=== PATIENT | male | born 1940 | race Caucasian/White ===

== ENCOUNTER 2018-06-20 17:42 | Inpatient (IN) | payer BC ==
[~2018-06-20] VITALS: Ht 172.7 cm; Wt 67.8 kg
[2018-06-20 17:45] VITALS: BP_SYST 189
[2018-06-20 18:23] LABS: BILIRUBIN,URINE NEGATIVE (NEGATIVE); BLOOD, URINE 1+ (NEGATIVE); CLARITY/URINE CLEAR (CLEAR); COLOR,URINE YELLOW (YELLOW); GLUCOSE,URINE NEGATIVE (NEGATIVE); KETONES,URINE NEGATIVE (NEGATIVE); LEUKOCYTE ESTERASE ,URINE NEGATIVE (NEGATIVE); NITRITE, URINE NEGATIVE (NEGATIVE); PROTEIN URINE TRACE (NEGATIVE); UROBILINOGEN,URINE 0.2 (0.2-1.0)
[2018-06-20 18:33] LABS: WBC,URINE 0-3 /HPF (0-3)
[2018-06-20 18:34] LABS: BACTERIA,URINE RARE /HPF (None Seen)
[2018-06-20 18:36] LABS: BARBITURATE, URINE NEGATIVE (NEG <=200); BENZODIAZEPINE, URINE NEGATIVE (NEG <=150); CANNABINOID, URINE NEGATIVE (NEG <=50); COCAINE, URINE NEGATIVE (NEG <=150); METHAMPHETAMINES SCREEN,URINE NEGATIVE (NEG <=500); OPIATE, URINE NEGATIVE (NEG <=100); PHENCYCLIDINE SCREEN,URINE NEGATIVE (NEG <=25); UR TRICYCLIC ANTIDEPRESSANTS NEGATIVE (NEG <=300); URINE AMPHETAMINE NEGATIVE (NEG <=500); URINE METHADONE NEGATIVE (NEG <=200); URINE OXYCODONE SCREEN NEGATIVE (NEG <=100); URINE PROPOXYPHENE SCREEN NEGATIVE (NEG <=300)
[2018-06-20 18:47] LABS: BASOPHILS # (AUTO) 0.1 K/uL (0.0-0.2); BASOPHILS % (AUTO) 0.8 % (0.0-2.0); EOSINOPHILS # (AUTO) 0.1 K/uL (0.0-0.4); EOSINOPHILS % (AUTO) 1.3 % (0.0-4.0); HEMATOCRIT 41.4 % (36-54); HEMOGLOBIN 13.4 g/dL (14.0-18.0); LYMPHOCYTES # (AUTO) 1.1 K/uL (1.0-5.5); MEAN CORPUSCULAR HEMOGLOBIN 30 pg (27-31); MEAN CORPUSCULAR HGB CONC 32 % (32-36); MEAN CORPUSCULAR VOLUME 92 fL (79.0-98.0); MONOCYTES # (AUTO) 0.7 K/uL (0.0-1.0); MONOCYTES % (AUTO) 6.6 % (1.7-9.3); NEUTROPHILS # (AUTO) 8.2 K/uL (1.8-7.7); NEUTROPHILS % (AUTO) 80.3 % (40.0-70.0); PLATELET COUNT (AUTO) 317 K/uL (130-430); RED BLOOD CELL COUNT(AUTO) 4.48 MIL/uL (4.2-6.2); RED CELL DISTRIBUTION WIDTH 13.5 % (9.0-15.0); WHITE BLOOD COUNT (AUTO) 10.2 K/uL (4.8-10.8)
[2018-06-20 18:51] LABS: ANION GAP 11 (5-15); CALCIUM 9.5 mg/dL (8.4-11.0); CHLORIDE 103 mmol/L (98-107); GLUCOSE 90 mg/dL (70-99); POTASSIUM 4.5 mmol/L (3.5-5.1); SODIUM SERUM 141 mmol/L (136-145); UREA NITROGEN, BLOOD 19 mg/dL (8-21)
[2018-06-20 18:56] LABS: ALANINE AMINOTRANSFERASE 33 U/L (12-78); ALBUMIN 4.3 g/dL (3.4-4.8); ALCOHOL, BLOOD < 3 mg/dL (<10); ASPARTATE AMINOTRANSFERASE 30 U/L (10-37); TOTAL BILIRUBIN 0.3 mg/dL (0.0-1.0)
[2018-06-20] MEDS ORDERED: LISI-600 PO (19:42)
[2018-06-20] MEDS ORDERED: GLIP-214 PO (19:42)
[2018-06-20] MEDS ORDERED: ASA81 PO (19:42)
[2018-06-20] MEDS ORDERED: GLU850 PO (19:42)
[2018-06-20] MEDS ORDERED: SIMV10TA2 PO (19:42)
[2018-06-20] MEDS ORDERED: MULT-1117 PO (19:42)
[2018-06-20] MEDS ORDERED: DEXTROSE 50% JECT 50 ML DISP.SYRIN IVP ONE (19:45)
[2018-06-20] MEDS ORDERED: DEXTROSE 50% JECT 50 ML DISP.SYRIN IVP PRN (19:45)
[2018-06-20] MEDS: D5NS 1,000 ML IV SCH (19:49)
[2018-06-20 20:55] VITALS: BP_SYST 199
[2018-06-20] MEDS ORDERED: cloNIDine HCL 0.1 MG TABLET PO PRN (21:15)
[2018-06-20] MEDS: INSULIN REGULAR, HUMAN 100 UNITS/ML, 10 ML VIAL (novoLIN R) SUBCUT PRN (23:38)
[2018-06-21 00:51] VITALS: BP_SYST 122
[2018-06-21] MEDS: INSULIN REGULAR, HUMAN 100 UNITS/ML, 10 ML VIAL (novoLIN R) SUBCUT PRN ×3 (04:11→20:37)
[2018-06-21 08:00] VITALS: BP_SYST 144
[2018-06-21] MEDS: LISINOPRIL 20 MG TABLET PO SCH (10:07)
[2018-06-21] MEDS: ASPIRIN 81 MG TAB.CHEW PO SCH (10:07)
[2018-06-21 12:00] VITALS: BP_SYST 133
[2018-06-21] MEDS: D5NS 1,000 ML IV SCH (12:12)
[2018-06-21 16:00] VITALS: BP_SYST 134
[2018-06-21 19:00] VITALS: BP_SYST 153
[2018-06-21 20:00] VITALS: BP_SYST 153
[2018-06-21] MEDS ORDERED: HYDROCORTISONE ACETATE 1 SUPP (ANUSOL HC) RC PRN (21:00)
[2018-06-21] MEDS ORDERED: POLYETHYLENE GLYCOL 3350, 17 GM/ POWD.PACK PO SCH (21:00)
[2018-06-21] MEDS: POLYETHYLENE GLYCOL 3350, 17 GM/ POWD.PACK PO PRN (22:04)
[2018-06-22] MEDS: D5NS 1,000 ML IV SCH ×2 (00:36→14:39)
[2018-06-22] MEDS: INSULIN REGULAR, HUMAN 100 UNITS/ML, 10 ML VIAL (novoLIN R) SUBCUT PRN ×4 (00:40→15:46)
[2018-06-22 01:15] VITALS: BP_SYST 148
[2018-06-22 08:00] VITALS: BP_SYST 148
[2018-06-22] MEDS ORDERED: ANURH RC (08:23)
[2018-06-22] MEDS ORDERED: POLY17PO4 PO (08:23)
[2018-06-22] MEDS ORDERED: TAMS0.4C96 PO (08:23)
[2018-06-22] MEDS ORDERED: SSREG SUBCUT (08:23)
[2018-06-22] MEDS ORDERED: TAMSULOSIN HCL 0.4 MG CAP PO SCH (09:00)
[2018-06-22] MEDS: ASPIRIN 81 MG TAB.CHEW PO SCH (09:25)
[2018-06-22] MEDS: LISINOPRIL 20 MG TABLET PO SCH (09:29)
[2018-06-22 11:15] VITALS: BP_SYST 145
[2018-06-22] MEDS: POLYETHYLENE GLYCOL 3350, 17 GM/ POWD.PACK PO PRN (11:36)
[2018-06-22 15:17] VITALS: BP_SYST 103
[2018-06-22 15:25] VITALS: BP_SYST 103
[2018-06-25 05:19] LABS: % FREE PSA 20.5 % (.); FREE PSA 1.52 ng/mL
[2018-06-25 20:52] LABS: PROSTATE SPECIFIC AG TOTAL 7.4 ng/mL (0.0-4.0)
== END 2018-06-22 16:40 | DRG 637 ==
LOC: SED 17:42 → SMU 19:38
PROVIDERS: ADMIT Internal Medicine Hospice and Palliative Medicine; ATTEND Internal Medicine Hospice and Palliative Medicine
DX: E11.649 Type 2 diabetes mellitus with hypoglycemia without coma (principal); G93.40 Encephalopathy, unspecified; F03.90 Unspecified dementia, unspecified severity, without behavioral disturbance, psychotic disturbance, mood disturbance, and anxiety; I10 Essential (primary) hypertension; N40.0 Benign prostatic hyperplasia without lower urinary tract symptoms; K59.00 Constipation, unspecified; Z79.82 Long term (current) use of aspirin; Z91.83 Wandering in diseases classified elsewhere; Z79.899 Other long term (current) drug therapy
CPT/HCPCS: 36415; 70450-TC; 80053; 80307; 81000-TC; 82140-TC; 82607; 82962; 83036; 84443-TC; 85025; 93005; 99285; G0103; G0482; J1815; J7042